=== PATIENT | male | born 1980 | race Two or more races ===

== ENCOUNTER 2021-01-23 10:07 | Emergency (ER) | payer BC ==
[~2021-01-23] VITALS: Ht 175.3 cm; Wt 79.4 kg
--- NOTE | 2021-01-23 10:07 | NUR ---
Pt comes to Er w/ c/o Lt sided chest pain, non radiating and intermittent, no C/O SOB.
--- NOTE | 2021-01-23 10:10 | NUR ---
Dr Nix at the bedside for MSE.
[2021-01-23] MEDS ORDERED: MAG HYDROX/AL HYDROX/SIMETH 30 ML LIQUID UDC PO ONE (10:15)
[2021-01-23] MEDS ORDERED: FAMOTIDINE. 20 MG/2 ML VIAL IV ONE (10:15)
[2021-01-23] MEDS ORDERED: MAG HYDROX/AL HYDROX/SIMETH 30 ML LIQUID UDC ONE (10:22)
[2021-01-23 10:29] LABS: BASOPHILS % (AUTO) 0.6 % (0.0-2.0); EOSINOPHILS # (AUTO) 0.3 K/uL (0.0-0.7); EOSINOPHILS % (AUTO) 3.8 % (0.0-7.0); HEMATOCRIT 44.4 % (36.7-47.1); HEMOGLOBIN 15.6 g/dL (12.5-16.3); LYMPHOCYTES # (AUTO) 1.8 K/uL (20.0-40.0); LYMPHOCYTES % (AUTO) 26.6 % (20.5-51.5); MEAN CORPUSCULAR HGB CONC 35 g/dL (32.5-36.3); MEAN CORPUSCULAR VOLUME 85.4 fL (73.0-96.2); MONOCYTES # (AUTO) 0.7 K/uL (2.0-10.0); MONOCYTES % (AUTO) 10.5 % (0.0-11.0); NEUTROPHILS # (AUTO) 3.9 K/uL (1.8-8.9); NEUTROPHILS % (AUTO) 58.5 % (38.5-71.5); PLATELET COUNT (AUTO) 275 K/uL (152-348); WHITE BLOOD COUNT (AUTO) 6.7 K/uL (3.6-10.2)
[2021-01-23] MEDS ORDERED: ACETAMINOPHEN 325 MG TABLET PO ONE (10:45)
[2021-01-23 10:50] LABS: BILIRUBIN,DIRECT 0.2 mg/dL (0.0-0.2); BILIRUBIN,TOTAL 1.2 mg/dL (0.2-1.0)
--- NOTE | 2021-01-23 12:55 | NUR ---
Patient is resting comfortably in bed with eyes closed, NAD noted.
[2021-01-23 14:36] VITALS: BP 124/77
--- NOTE | 2021-01-23 14:36 | NUR ---
Patient discharged to home in stable condition. Written and verbal after care instructions given. Patient verbalizes understanding of instructions. Stressed follow up or return to ER for worsening s/s.
--- NOTE | 2021-01-23 14:36 | NUR ---
IV removed. Catheter intact and site benign. Pressure and 4x4 gauze applied to site. No bleeding noted.
== END 2021-01-23 14:37 | disposition home or self-care (01) ==
LOC: ER 10:07
DX: R07.9 Chest pain, unspecified (principal); R03.0 Elevated blood-pressure reading, without diagnosis of hypertension; Z82.49 Family history of ischemic heart disease and other diseases of the circulatory system; E78.5 Hyperlipidemia, unspecified; R74.01 Elevation of levels of liver transaminase levels; R00.1 Bradycardia, unspecified
CPT/HCPCS: 36415; 70030-TC; 71045; 85025; 93005; A4663